=== PATIENT | male | born 1975 | race Caucasian/White ===

== ENCOUNTER 2018-04-11 17:23 | Emergency (ER) | payer BC ==
[2018-04-11] MEDS ORDERED: Diphtheria,Pertussis(Acell),Tetanus Vaccine 0.5 ML SDV IM ONE (17:46)
[2018-04-11] MEDS ORDERED: Lidocaine 1% 30 ML SDV INJECT ONE (17:55)
[2018-04-11] MEDS ORDERED: Bacitracin Oint 1 GM U/D Packet TOP ONE (18:12)
--- NOTE | 2018-04-11 18:15 | EDM.PDOC ---
ED HPI GENERAL MEDICAL PROBLEM - General Chief Complaint: Skin Complaint Stated Complaint: [id number] FISH HOOK IN HAND Time Seen by Provider: 04/11/18 17:44 Source of Information: Reports: Patient, RN, RN Notes Reviewed History Limitations: Reports: No Limitations - History of Present Illness INITIAL COMMENTS - FREE TEXT/NARRATIVE: Patient presents to the ER with c/o fish hook in the right hand. Patient states he was attempting to take a fish off the hook when it became lodged in his right hand. Patient states this happened 1.5-2 hours ago. Patient states he is unsure of last tetanus vaccination. Onset: Today, Sudden Duration: Constant Location: Reports: Upper Extremity, Right - Related Data Allergies Allergy/AdvReac Type Severity Reaction Status Date / Time No Known Allergies Allergy Verified 04/11/18 17:30 Home Meds: Home Meds . [No Known Home Meds] 04/11/18 [History] Past Medical History HEENT History: Reports: Impaired Vision Social & Family History - Tobacco Use Smoking Status *Q: Never Smoker - Caffeine Use Caffeine Use: Reports: Coffee, Soda - Recreational Drug Use Recreational Drug Use: No ED ROS GENERAL - Review of Systems Review Of Systems: ROS reveals no pertinent complaints other than HPI. ED EXAM, SKIN/RASH Exam: See Below Exam Limited By: No Limitations General Appearance: Alert, WD/WN, No Apparent Distress Eye Exam: Bilateral Eye: EOMI, Normal Inspection Ears: Normal External Exam, Hearing Grossly Normal Nose: Normal Inspection Throat/Mouth: Normal Inspection, Normal Voice, No Airway Compromise Head: Atraumatic, Normocephalic Neck: Normal Inspection, Supple, Non-Tender, Full Range of Motion Respiratory/Chest: No Respiratory Distress, Lungs Clear, Normal Breath Sounds, No Accessory Muscle Use, Chest Non-Tender Cardiovascular: Normal Peripheral Pulses, Regular Rate, Rhythm, No Edema, No Gallop, No JVD, No Murmur, No Rub Peripheral Pulses: 2+: Radial (L), Radial (R) GI/Abdominal: Normal Bowel Sounds, Soft, Non-Tender (Male) Exam: Deferred Rectal (Males) Exam: Deferred Back Exam: Normal Inspection, Full Range of Motion, NT Extremities: Normal Inspection, Normal Range of Motion, Non-Tender, No Pedal Edema, Normal Capillary Refill Neurological: Alert, Oriented, CN II-XII Intact, Normal Cognition, Normal Gait, Normal Reflexes, No Motor/Sensory Deficits Psychiatric: Normal Affect, Normal Mood Skin: Warm, Dry, Normal Color, No Rash, Wound/Incision (hook in right lateral hand) Location, Skin: Upper Extremity, Right Lymphatic: No Adenopathy ED SKIN PROCEDURES - Foreign Body Removal Indication:: Fish hook lodged in right lateral hand Consent Obtained:: Patient Performing Doctor:: Eugenia Hernandez Anesthesia Type: Local Complications:: No Course - Vital Signs Last Recorded V/S: Last Vital Signs Temp 99.0 F 04/11/18 17:27 Pulse 105 H 04/11/18 17:27 Resp 18 04/11/18 17:27 BP 133/94 H 04/11/18 17:27 Pulse Ox 97 04/11/18 17:27 - Orders/Labs/Meds Orders: Active Orders 24 hr Category Date Time Status Vaccines to be Administered [RC] PER UNIT ROUTINE Care 04/11/18 17:46 Active Meds: Medications Discontinued Medications Generic Name Dose Route Start Last Admin Trade Name Freq PRN Reason Stop Dose Admin Bacitracin 1 dose 04/11/18 18:12 04/11/18 18:15 Bacitracin Oint 1 Gm TOP 04/11/18 18:13 1 dose ONETIME ONE Administration Diphtheria/Tetanus/Acell Pertussis 0.5 ml 04/11/18 17:46 04/11/18 17:51 Adacel IM 04/11/18 17:47 0.5 ml .ONCE ONE Administration Lidocaine HCl 30 ml 04/11/18 17:55 04/11/18 18:12 Xylocaine-Mpf 1% INJECT 04/11/18 17:56 4 ml ONETIME ONE Administration Departure - Departure Time of Disposition: 18:14 Disposition: Home, Self-Care 01 Condition: Good Clinical Impression: Puncture wound Fish hook injury of hand Qualifiers: Encounter type: initial encounter Laterality: right Qualified Code(s): S69.91XA - Unspecified injury of right wrist, hand and finger(s), initial encounter - Discharge Information Instructions: Puncture Wound, [id number] Referrals: PCP,None [Primary Care Provider] - Forms: ED Department Discharge Additional Instructions: Keep area clean and dry Follow up with your primary care facility - My Orders Last 24 Hours: My Active Orders 04/11/18 17:46 Vaccines to be Administered [RC] PER UNIT ROUTINE - Assessment/Plan Last 24 Hours: My Active Orders 04/11/18 17:46 Vaccines to be Administered [RC] PER UNIT ROUTINE
== END 2018-04-11 18:20 | disposition home or self-care (01) ==
LOC: DL.ED 17:23
DX: S61.441A Puncture wound with foreign body of right hand, initial encounter (principal); Z23 Encounter for immunization; W45.8XXA Other foreign body or object entering through skin, initial encounter
CPT/HCPCS: 90471; 90715; 99283